=== PATIENT | female | born 1935 | race African-American/Black ===

== ENCOUNTER → 2017-04-08 | Outpatient (CLI) | payer MEDICARE, MEDICAID | END | disposition home or self-care (01) | LOC: CARD 09:20 | PROVIDERS: ATTEND Psychiatry & Neurology Neurology | DX: E23.0 Hypopituitarism (principal) ==

== ENCOUNTER 2017-08-17 14:05 | Inpatient (IN) | payer MEDICARE, MEDICAID ==
[~2017-08-17] VITALS: Ht 167.6 cm; Wt 102.2 kg
[2017-08-17] MEDS ORDERED: ONDANSETRON HCL 4MG/2ML VIAL IV STA (17:02)
[2017-08-17 17:59] LABS: INR 1.1; PROTHROMBIN TIME 11.3 sec (9.4-11.6)
[2017-08-17 18:02] LABS: BASOPHILS % 1.2 % (0.0-2.0); HEMATOCRIT. 33.5 % (36.0-48.0); HEMOGLOBIN. 11.2 g/dL (12.0-16.0); LYMPHOCYTES % 30.7 % (20.0-50.0); MEAN CORPUSCULAR HEMOGLOBIN 31.3 pg (28.0-32.0); MEAN CORPUSCULAR VOLUME 93.5 fL (81.0-99.0); MEAN PLATELET VOLUME 7.9 fl (7.4-10.4); MONOCYTES % 8.1 % (2.0-8.0); PLATELET 222 x1000/uL (130-400); RED BLOOD CELL COUNT 3.58 mill/uL (4.2-5.4); RED CELL DISTRIBUTION WIDTH 13.9 % (11.6-14.6)
[2017-08-17 18:03] LABS: AMMONIA < 25 uMol/L (<32)
[2017-08-17 18:12] LABS: CHLORIDE 109 mEq/L (98-107); ETHANOL BLOOD < 10 mg/dL
[2017-08-17 18:17] LABS: CREATINE KINASE 163 IU/L (26-192)
[2017-08-17] MEDS ORDERED: FUROSEMIDE 40MG/4ML VIAL IVP ONE (20:30)
[2017-08-17] MEDS ORDERED: ASPIRIN 325MG EC TABLET PO ONE (20:30)
[2017-08-17 22:59] LABS: CLARITY URINE CLOUDY (CLEAR); COLOR URINE YELLOW (YELLOW); KETONES URINE NEGATIVE (NEGATIVE); LEUKOCYTE ESTERASE URINE 3+ (NEGATIVE); NITRITE URINE POSITIVE (NEGATIVE); OCCULT BLOOD URINE TRACE (NEGATIVE); PH URINE 5.5 (4.5-8.0); PROTEIN URINE NEGATIVE (NEGATIVE); SPECIFIC GRAVITY URINE 1.013 (1.005-1.030); UROBILINOGEN URINE 0.2 E.U./dL (0.2-1.0)
[2017-08-17 23:10] LABS: *AMPHETAMINES SCREEN URINE NEGATIVE (NEGATIVE); *BARBITURATES SCREEN URINE NEGATIVE (NEGATIVE); *BENZODIAZEPINES SCREEN URINE NEGATIVE (NEGATIVE); *COCAINE SCREEN URINE NEGATIVE (NEGATIVE); METHADONE URINE SCREEN NEGATIVE (NEGATIVE)
[2017-08-17 23:11] LABS: CANNABINOID URINE SCREEN NEGATIVE (NEGATIVE); OPIATES URINE SCREEN NEGATIVE (NEGATIVE); PHENCYCLIDINE URINE SCREEN NEGATIVE (NEGATIVE)
[2017-08-17 23:35] VITALS: BP 163/60
[2017-08-17 23:50] VITALS: BP 163/60
[2017-08-18] MEDS ORDERED: CARB15DR3 EACHEYE (00:35)
[2017-08-18] MEDS ORDERED: TRAV2.5D RIGHTEYE (00:35)
[2017-08-18] MEDS ORDERED: [UNRECOGNIZED DRUG - REMARK] (00:35)
[2017-08-18] MEDS ORDERED: CARB15DR OP (00:35)
[2017-08-18] MEDS ORDERED: CYCL30DR OP (00:35)
[2017-08-18] MEDS ORDERED: CEFTRIAXONE 1,000 MG in DEXTROSE 5% WATER 50 ML IV SCH (01:15)
[2017-08-18] MEDS ORDERED: CEFTRIAXONE 1 G PREMIX 50 ML IV SCH (03:00)
[2017-08-18 04:00] VITALS: BP 149/53
[2017-08-18 08:00] VITALS: BP 137/57
[2017-08-18] MEDS ORDERED: MEDICATION NOT ON FORMULARY EA (Travoprost (Travatan Z) 1 DROP) RIGHTEYE SCH (09:00)
[2017-08-18] MEDS: CARVEDILOL 3.125 MG TABLET PO SCH ×2 (09:29→21:00)
[2017-08-18] MEDS: FUROSEMIDE 40MG TABLET PO SCH ×2 (09:29→21:00)
[2017-08-18] MEDS: LISINOPRIL 20MG TABLET PO SCH (09:30)
[2017-08-18] MEDS: ENOXAPARIN 30MG/0.3ML SYR SUBCUT SCH ×2 (09:30→21:00)
[2017-08-18] MEDS ORDERED: MORPHINE SULFATE 4 MG/ML CPJ (NOT FOR IM USE) IV PRN (09:30)
[2017-08-18] MEDS: LEVOFLOXACIN 500MG PREMIX 100 ML IV SCH (10:22)
[2017-08-18] MEDS: HYDROCODONE/ACETAMINOPHEN 5/325MG TABLET PO PRN ×2 (10:22→22:43)
[2017-08-18] MEDS ORDERED: IPRATROPIUM/ALBUTEROL 0.5-3(2.5)MG/3ML NEB HHN PRN (10:30)
[2017-08-18 12:00] VITALS: BP 108/55
[2017-08-18 16:00] VITALS: BP 127/60
[2017-08-18 20:00] VITALS: BP 137/60
[2017-08-18] MEDS: GUAIFENESIN 600MG ER TABLET PO SCH (21:00)
[2017-08-18] MEDS: LATANOPROST 0.005% OPHTH DROPS 2.5ML RIGHTEYE SCH (21:00)
[2017-08-19] VITALS: BP 111/59
[2017-08-19 04:00] VITALS: BP 119/63
[2017-08-19 07:45] VITALS: BP 132/60
[2017-08-19] MEDS: GUAIFENESIN 600MG ER TABLET PO SCH ×2 (09:33→20:57)
[2017-08-19] MEDS: FUROSEMIDE 40MG TABLET PO SCH (09:34)
[2017-08-19] MEDS: CARVEDILOL 3.125 MG TABLET PO SCH ×2 (09:36→20:57)
[2017-08-19] MEDS: LISINOPRIL 20MG TABLET PO SCH (09:36)
[2017-08-19] MEDS: ENOXAPARIN 30MG/0.3ML SYR SUBCUT SCH (09:41)
[2017-08-19 09:50] LABS: HEMATOCRIT 36.7 % (36.0-48.0); HEMOGLOBIN 12.3 g/dL (12.0-16.0); MEAN CORPUSCULAR HEMOGLOBIN 31.4 pg (28.0-32.0); MEAN CORPUSCULAR VOLUME 93.8 fL (81.0-99.0); PLATELET 229 x1000/uL (130-400); RED BLOOD CELL COUNT 3.91 mill/uL (4.2-5.4)
[2017-08-19 11:46] VITALS: BP 136/65
[2017-08-19] MEDS ORDERED: VANCOMYCIN 2,000 MG in DEXT 5% WATER 500 ML IV NR (14:00)
[2017-08-19 16:00] VITALS: BP 127/52
[2017-08-19 20:00] VITALS: BP 126/59
[2017-08-19] MEDS: LATANOPROST 0.005% OPHTH DROPS 2.5ML RIGHTEYE SCH (20:58)
[2017-08-19] MEDS: HYDROCODONE/ACETAMINOPHEN 5/325MG TABLET PO PRN (20:58)
[2017-08-20] VITALS: BP 121/60
[2017-08-20 04:00] VITALS: BP 129/64
[2017-08-20 07:14] LABS: BASOPHILS % 0.6 % (0.0-2.0); EOSINOPHILS % 2.7 % (0.0-5.0); HEMATOCRIT. 30.7 % (36.0-48.0); HEMOGLOBIN. 10.6 g/dL (12.0-16.0); LYMPHOCYTES % 36.5 % (20.0-50.0); MEAN CORPUSCULAR HEMOGLOBIN 31.9 pg (28.0-32.0); MONOCYTES % 12.8 % (2.0-8.0); NEUTROPHILS % 47.4 % (40.0-76.0); PLATELET 198 x1000/uL (130-400); RED CELL DISTRIBUTION WIDTH 13.7 % (11.6-14.6)
[2017-08-20 08:06] VITALS: BP 103/44
[2017-08-20] MEDS: LEVOFLOXACIN 500MG PREMIX 100 ML IV SCH (08:28)
[2017-08-20] MEDS: ASPIRIN 81MG TABLET PO SCH (08:29)
[2017-08-20] MEDS: ENOXAPARIN 40MG/0.4ML SYR SUBCUT SCH (08:29)
[2017-08-20] MEDS: CARVEDILOL 3.125 MG TABLET PO SCH ×2 (08:31→20:47)
[2017-08-20] MEDS: LISINOPRIL 20MG TABLET PO SCH (08:32)
[2017-08-20] MEDS ORDERED: FUROSEMIDE 40MG TABLET PO SCH (09:00)
[2017-08-20] MEDS: GUAIFENESIN 600MG ER TABLET PO SCH ×2 (10:43→20:42)
[2017-08-20] MEDS ORDERED: VANCOMYCIN 500 MG PREMIX 100 ML IV SCH (13:00)
[2017-08-20 20:00] VITALS: BP 120/76
[2017-08-20] MEDS: HYDROCODONE/ACETAMINOPHEN 5/325MG TABLET PO PRN (20:47)
[2017-08-20] MEDS: LATANOPROST 0.005% OPHTH DROPS 2.5ML RIGHTEYE SCH (20:52)
[2017-08-20] MEDS ORDERED: ATORVASTATIN CALCIUM 20MG TABLET PO SCH (21:00)
[2017-08-21] VITALS: BP 116/96
[2017-08-21 04:00] VITALS: BP 107/37
[2017-08-21 05:06] VITALS: BP 99/47
[2017-08-21 08:00] VITALS: BP 98/43
[2017-08-21] MEDS: CARVEDILOL 3.125 MG TABLET PO SCH (09:00)
[2017-08-21] MEDS: LISINOPRIL 20MG TABLET PO SCH (09:00)
[2017-08-21] MEDS: ASPIRIN 81MG TABLET PO SCH (09:37)
[2017-08-21] MEDS: ENOXAPARIN 40MG/0.4ML SYR SUBCUT SCH (09:37)
[2017-08-21] MEDS: GUAIFENESIN 600MG ER TABLET PO SCH (09:37)
== END 2017-08-21 12:40 | DRG 871 ==
LOC: ER 14:37 → 5WST 20:53 → EDBEDREQTM 20:55 → EDBEDREQ 20:55 → ENRESERV 22:31
PROVIDERS: ADMIT Internal Medicine; ATTEND Internal Medicine
DX: A41.9 Sepsis, unspecified organism (principal); G93.40 Encephalopathy, unspecified; I63.511 Cerebral infarction due to unspecified occlusion or stenosis of right middle cerebral artery; N17.9 Acute kidney failure, unspecified; I13.0 Hypertensive heart and chronic kidney disease with heart failure and stage 1 through stage 4 chronic kidney disease, or unspecified chronic kidney disease; N39.0 Urinary tract infection, site not specified; R44.3 Hallucinations, unspecified; I50.9 Heart failure, unspecified; I27.20 Pulmonary hypertension, unspecified; D64.9 Anemia, unspecified; E66.9 Obesity, unspecified; E78.5 Hyperlipidemia, unspecified; N18.9 Chronic kidney disease, unspecified; Z60.2 Problems related to living alone; B96.89 Other specified bacterial agents as the cause of diseases classified elsewhere; B96.20 Unspecified Escherichia coli [E. coli] as the cause of diseases classified elsewhere; B95.8 Unspecified staphylococcus as the cause of diseases classified elsewhere; G56.01 Carpal tunnel syndrome, right upper limb; H40.9 Unspecified glaucoma; H54.8 Legal blindness, as defined in USA; M10.9 Gout, unspecified; Z79.82 Long term (current) use of aspirin; Z82.49 Family history of ischemic heart disease and other diseases of the circulatory system; Z85.41 Personal history of malignant neoplasm of cervix uteri; Z88.0 Allergy status to penicillin; Z86.73 Personal history of transient ischemic attack (TIA), and cerebral infarction without residual deficits; Z98.84 Bariatric surgery status; Z90.710 Acquired absence of both cervix and uterus; Z79.899 Other long term (current) drug therapy; Z98.49 Cataract extraction status, unspecified eye; Z68.36 Body mass index [BMI] 36.0-36.9, adult
CPT/HCPCS: 36415; 70450; 70544; 70553; 71045; 80048; 80053; 80061; 80202; 80305; 81003; 82140; 82550; 82565; 82962; 83605; 83880; 84443; 84484; 85025; 85027; 85610; 87040; 87077; 87086; 87186; 92523; 92610; 93005; 93306; 93880; 96374; 97163; 97167; 97530; 99285; A6261; C1893; G0482; J0696; J1650; J1940; J1956; J3370; J7040; J7060; A4315

== ENCOUNTER 2017-08-21 12:50 | Inpatient (IN) | payer MEDICARE, MEDICAID ==
[~2017-08-21] VITALS: Ht 167.6 cm; Wt 99.8 kg
[2017-08-21 12:50] VITALS: BP 139/59
[~2017-08-21 12:50] MED LIST: CARB15DR3 EACHEYE; CYCL30DR OP; TRAV2.5D RIGHTEYE; [UNRECOGNIZED DRUG - REMARK]
[2017-08-21] MEDS ORDERED: IPRATROPIUM/ALBUTEROL 0.5-3(2.5)MG/3ML NEB HHN PRN (14:30)
[2017-08-21 16:23] LABS: BASOPHILS % 0.7 % (0.0-2.0); EOSINOPHILS % 4.2 % (0.0-5.0); HEMATOCRIT. 37.1 % (36.0-48.0); HEMOGLOBIN. 12.5 g/dL (12.0-16.0); LYMPHOCYTES % 32.5 % (20.0-50.0); MEAN CORPUSCULAR HEMOGLOBIN 31.3 pg (28.0-32.0); MEAN CORPUSCULAR VOLUME 93.2 fL (81.0-99.0); MEAN PLATELET VOLUME 7.7 fl (7.4-10.4); MONOCYTES % 11.3 % (2.0-8.0); NEUTROPHILS % 51.3 % (40.0-76.0); PLATELET 222 x1000/uL (130-400); RED BLOOD CELL COUNT 3.98 mill/uL (4.2-5.4); RED CELL DISTRIBUTION WIDTH 13.7 % (11.6-14.6)
[2017-08-21 16:31] LABS: CHLORIDE 104 mEq/L (98-107)
[2017-08-21] MEDS: CLOPIDOGREL 75MG TABLET PO SCH (16:35)
[2017-08-21] MEDS: [UNRECOGNIZED DRUG - OTHER] OP SCH (16:36)
[2017-08-21 16:37] LABS: PREALBUMIN 19.7 mg/dL (20.0-40.0)
[2017-08-21] MEDS: REFRESH LIQUIGEL OP SCH (16:50)
[2017-08-21] MEDS ORDERED: LEVOFLOXACIN 500MG TABLET PO NR (17:00)
[2017-08-21] MEDS: RESTASIS OP SCH (17:24)
[2017-08-21 20:00] VITALS: BP 130/64
[2017-08-21] MEDS ORDERED: LATANOPROST 0.005% OPHTH DROPS 2.5ML BOTHEYE SCH (21:00)
[2017-08-21] MEDS: GUAIFENESIN 600MG ER TABLET PO SCH (21:30)
[2017-08-21] MEDS: ATORVASTATIN CALCIUM 20MG TABLET PO SCH (21:30)
[2017-08-21] MEDS: CARVEDILOL 3.125 MG TABLET PO SCH (21:31)
[2017-08-21] MEDS: LATANOPROST 0.005% OPHTH DROPS 2.5ML RIGHTEYE SCH (21:32)
[2017-08-21] MEDS: HYDROCODONE/ACETAMINOPHEN 5/325MG TABLET PO PRN (23:36)
[2017-08-22] MEDS: [UNRECOGNIZED DRUG - OTHER] OP SCH ×2 (06:54→17:40)
[2017-08-22] MEDS: REFRESH LIQUIGEL OP SCH ×2 (06:54→17:39)
[2017-08-22] MEDS: RESTASIS OP SCH ×2 (06:54→17:53)
[2017-08-22 08:00] VITALS: BP 130/48
[2017-08-22] MEDS: CARVEDILOL 3.125 MG TABLET PO SCH ×2 (09:00→21:26)
[2017-08-22] MEDS: LISINOPRIL 20MG TABLET PO SCH (09:00)
[2017-08-22] MEDS: GUAIFENESIN 600MG ER TABLET PO SCH (09:39)
[2017-08-22] MEDS: CLOPIDOGREL 75MG TABLET PO SCH (09:39)
[2017-08-22] MEDS: ASPIRIN 81MG TABLET PO SCH (09:40)
[2017-08-22] MEDS: ENOXAPARIN 40MG/0.4ML SYR SUBCUT SCH (09:41)
[2017-08-22] MEDS ORDERED: LEVOFLOXACIN 500MG TABLET PO SCH (11:00)
[2017-08-22] MEDS ORDERED: LEVOFLOXACIN 250MG TABLET PO SCH (17:00)
[2017-08-22] MEDS: ACETAMINOPHEN 500MG TABLET PO SCH (17:39)
[2017-08-22] MEDS: LIDOCAINE HCL 4% CREAM 76GM TUBE TP SCH ×2 (18:00→21:28)
[2017-08-22 20:00] VITALS: BP 131/52
[2017-08-22] MEDS: LATANOPROST 0.005% OPHTH DROPS 2.5ML RIGHTEYE SCH (21:00)
[2017-08-22] MEDS: ATORVASTATIN CALCIUM 20MG TABLET PO SCH (21:26)
[2017-08-23] MEDS: RESTASIS OP SCH ×2 (06:02→17:31)
[2017-08-23] MEDS: [UNRECOGNIZED DRUG - OTHER] OP SCH ×2 (06:02→17:31)
[2017-08-23] MEDS: REFRESH LIQUIGEL OP SCH ×2 (06:02→17:32)
[2017-08-23 08:00] VITALS: BP 117/88
[2017-08-23] MEDS: CARVEDILOL 3.125 MG TABLET PO SCH ×2 (09:00→21:00)
[2017-08-23] MEDS: LISINOPRIL 20MG TABLET PO SCH (09:00)
[2017-08-23] MEDS: ASPIRIN 81MG TABLET PO SCH (09:55)
[2017-08-23] MEDS: CLOPIDOGREL 75MG TABLET PO SCH (09:57)
[2017-08-23] MEDS: ACETAMINOPHEN 500MG TABLET PO SCH ×3 (09:57→17:30)
[2017-08-23] MEDS: ENOXAPARIN 40MG/0.4ML SYR SUBCUT SCH (10:02)
[2017-08-23] MEDS: LIDOCAINE HCL 4% CREAM 76GM TUBE TP SCH ×4 (10:09→22:05)
[2017-08-23 20:00] VITALS: BP 115/87
[2017-08-23 20:01] LABS: CLARITY URINE CLEAR (CLEAR); COLOR URINE YELLOW (YELLOW); KETONES URINE NEGATIVE (NEGATIVE); LEUKOCYTE ESTERASE URINE 1+ (NEGATIVE); NITRITE URINE NEGATIVE (NEGATIVE); OCCULT BLOOD URINE NEGATIVE (NEGATIVE); PROTEIN URINE NEGATIVE (NEGATIVE); SPECIFIC GRAVITY URINE 1.017 (1.005-1.030); UROBILINOGEN URINE 0.2 E.U./dL (0.2-1.0)
[2017-08-23] MEDS: LATANOPROST 0.005% OPHTH DROPS 2.5ML RIGHTEYE SCH (21:00)
[2017-08-23] MEDS: ATORVASTATIN CALCIUM 20MG TABLET PO SCH (22:05)
[2017-08-24] MEDS: [UNRECOGNIZED DRUG - OTHER] OP SCH ×2 (04:56→17:13)
[2017-08-24] MEDS: RESTASIS OP SCH ×2 (05:12→17:14)
[2017-08-24] MEDS: REFRESH LIQUIGEL OP SCH ×2 (05:14→17:14)
[2017-08-24 06:47] LABS: BASOPHILS % 1.3 % (0.0-2.0); EOSINOPHILS % 5.6 % (0.0-5.0); HEMATOCRIT. 34.5 % (36.0-48.0); HEMOGLOBIN. 11.6 g/dL (12.0-16.0); LYMPHOCYTES % 38.4 % (20.0-50.0); MEAN CORPUSCULAR HEMOGLOBIN 31.3 pg (28.0-32.0); MEAN CORPUSCULAR VOLUME 93.2 fL (81.0-99.0); MEAN PLATELET VOLUME 7.8 fl (7.4-10.4); MONOCYTES % 11.8 % (2.0-8.0); NEUTROPHILS % 42.9 % (40.0-76.0); PLATELET 218 x1000/uL (130-400); RED CELL DISTRIBUTION WIDTH 13.4 % (11.6-14.6)
[2017-08-24 08:00] VITALS: BP 124/35
[2017-08-24 08:29] LABS: PHOSPHORUS 3.8 mg/dL (2.5-4.9)
[2017-08-24 08:49] LABS: FOLIC ACID (FOLATE) SERUM 8.3 ng/mL (>5.38)
[2017-08-24] MEDS: CARVEDILOL 3.125 MG TABLET PO SCH ×2 (09:00→21:00)
[2017-08-24] MEDS: ENOXAPARIN 40MG/0.4ML SYR SUBCUT SCH (09:24)
[2017-08-24] MEDS: CLOPIDOGREL 75MG TABLET PO SCH (09:25)
[2017-08-24] MEDS: ASPIRIN 81MG TABLET PO SCH (09:25)
[2017-08-24] MEDS: ACETAMINOPHEN 500MG TABLET PO SCH ×3 (09:25→17:15)
[2017-08-24] MEDS: LIDOCAINE HCL 4% CREAM 76GM TUBE TP SCH ×4 (09:29→20:31)
[2017-08-24] MEDS: LISINOPRIL 20MG TABLET PO SCH (09:34)
[2017-08-24] MEDS: OXYCODONE HCL 5MG TABLET PO SCH ×2 (12:29→17:17)
[2017-08-24] MEDS: MUPIROCIN 2% OINT 22GM NS SCH ×2 (12:30→20:31)
[2017-08-24 20:00] VITALS: BP 136/51
[2017-08-24] MEDS: ATORVASTATIN CALCIUM 20MG TABLET PO SCH (20:31)
[2017-08-24] MEDS: HYDROCODONE/ACETAMINOPHEN 5/325MG TABLET PO PRN (20:32)
[2017-08-24] MEDS: LATANOPROST 0.005% OPHTH DROPS 2.5ML RIGHTEYE SCH (21:17)
[2017-08-25] MEDS: [UNRECOGNIZED DRUG - OTHER] OP SCH ×2 (04:16→16:25)
[2017-08-25] MEDS: REFRESH LIQUIGEL OP SCH ×3 (04:35→16:32)
[2017-08-25] MEDS: RESTASIS OP SCH ×2 (04:35→16:29)
[2017-08-25] MEDS: HYDROCODONE/ACETAMINOPHEN 5/325MG TABLET PO PRN (06:37)
[2017-08-25 08:00] VITALS: BP 119/41
[2017-08-25] MEDS: LISINOPRIL 20MG TABLET PO SCH (09:00)
[2017-08-25] MEDS: CARVEDILOL 3.125 MG TABLET PO SCH ×2 (09:00→21:00)
[2017-08-25] MEDS: MUPIROCIN 2% OINT 22GM NS SCH ×2 (09:36→21:17)
[2017-08-25] MEDS: ASPIRIN 81MG TABLET PO SCH (09:39)
[2017-08-25] MEDS: CLOPIDOGREL 75MG TABLET PO SCH (09:40)
[2017-08-25] MEDS: ACETAMINOPHEN 500MG TABLET PO SCH ×3 (09:40→16:22)
[2017-08-25] MEDS: OXYCODONE HCL 5MG TABLET PO SCH ×3 (09:42→21:28)
[2017-08-25] MEDS: ENOXAPARIN 40MG/0.4ML SYR SUBCUT SCH (09:43)
[2017-08-25] MEDS: LIDOCAINE HCL 4% CREAM 76GM TUBE TP SCH ×4 (09:46→21:16)
[2017-08-25] MEDS ORDERED: LACTULOSE 20G/30ML UDC PO NR (12:45)
[2017-08-25] MEDS: DOCUSATE SODIUM 100MG CAPSULE PO SCH (16:22)
[2017-08-25 20:00] VITALS: BP 126/36
[2017-08-25] MEDS: POLYETHYLENE GLYCOL 3350 (17GM) 1 DOSE PACK PO SCH (21:00)
[2017-08-25] MEDS: LATANOPROST 0.005% OPHTH DROPS 2.5ML RIGHTEYE SCH (21:26)
[2017-08-25] MEDS: ATORVASTATIN CALCIUM 20MG TABLET PO SCH (21:27)
[2017-08-26] MEDS: [UNRECOGNIZED DRUG - OTHER] OP SCH ×2 (05:00→17:24)
[2017-08-26] MEDS: OXYCODONE HCL 5MG TABLET PO SCH (06:05)
[2017-08-26] MEDS: RESTASIS OP SCH ×2 (06:07→17:30)
[2017-08-26 07:21] LABS: BASOPHILS % 1.3 % (0.0-2.0); EOSINOPHILS % 5.1 % (0.0-5.0); HEMATOCRIT. 36.2 % (36.0-48.0); HEMOGLOBIN. 12.4 g/dL (12.0-16.0); LYMPHOCYTES % 42.6 % (20.0-50.0); MEAN CORPUSCULAR HEMOGLOBIN 32.2 pg (28.0-32.0); MEAN CORPUSCULAR VOLUME 93.9 fL (81.0-99.0); MEAN PLATELET VOLUME 8.3 fl (7.4-10.4); MONOCYTES % 12.8 % (2.0-8.0); NEUTROPHILS % 38.2 % (40.0-76.0); PLATELET 213 x1000/uL (130-400); RED BLOOD CELL COUNT 3.86 mill/uL (4.2-5.4); RED CELL DISTRIBUTION WIDTH 13.4 % (11.6-14.6)
[2017-08-26 07:36] LABS: CHLORIDE 106 mEq/L (98-107)
[2017-08-26 08:00] VITALS: BP 151/52
[2017-08-26 08:03] LABS: PHOSPHORUS 3.4 mg/dL (2.5-4.9)
[2017-08-26] MEDS: ASPIRIN 81MG TABLET PO SCH (08:51)
[2017-08-26] MEDS: MUPIROCIN 2% OINT 22GM NS SCH ×2 (08:51→21:37)
[2017-08-26] MEDS: DOCUSATE SODIUM 100MG CAPSULE PO SCH ×2 (08:51→17:24)
[2017-08-26] MEDS: CLOPIDOGREL 75MG TABLET PO SCH (08:51)
[2017-08-26] MEDS: ACETAMINOPHEN 500MG TABLET PO SCH ×3 (08:51→17:24)
[2017-08-26] MEDS: CARVEDILOL 3.125 MG TABLET PO SCH ×2 (08:52→21:00)
[2017-08-26] MEDS: ENOXAPARIN 40MG/0.4ML SYR SUBCUT SCH (08:52)
[2017-08-26] MEDS: LISINOPRIL 20MG TABLET PO SCH (08:52)
[2017-08-26] MEDS: LIDOCAINE HCL 4% CREAM 76GM TUBE TP SCH ×4 (08:53→21:37)
[2017-08-26] MEDS: ZINC SULFATE 220 MG ( 50 ) CAPSULE PO SCH (15:33)
[2017-08-26] MEDS: REFRESH LIQUIGEL OP SCH ×2 (15:33→20:00)
[2017-08-26] MEDS: FOLIC ACID/VITAMIN B COMP W-C TABLET PO SCH (15:33)
[2017-08-26 20:00] VITALS: BP 129/51
[2017-08-26] MEDS: POLYETHYLENE GLYCOL 3350 (17GM) 1 DOSE PACK PO SCH (21:37)
[2017-08-26] MEDS: ATORVASTATIN CALCIUM 20MG TABLET PO SCH (21:37)
[2017-08-26] MEDS: ASCORBIC ACID 250 MG TABLET PO SCH (21:37)
[2017-08-26] MEDS: LATANOPROST 0.005% OPHTH DROPS 2.5ML RIGHTEYE SCH (21:37)
[2017-08-27] MEDS: [UNRECOGNIZED DRUG - OTHER] OP SCH ×2 (05:53→17:50)
[2017-08-27] MEDS: RESTASIS OP SCH ×2 (05:53→17:50)
[2017-08-27 08:00] VITALS: BP 115/41
[2017-08-27] MEDS: LIDOCAINE HCL 4% CREAM 76GM TUBE TP SCH ×4 (08:39→21:49)
[2017-08-27] MEDS: MUPIROCIN 2% OINT 22GM NS SCH ×2 (08:39→21:59)
[2017-08-27] MEDS: REFRESH LIQUIGEL OP SCH ×3 (08:40→20:17)
[2017-08-27] MEDS: CLOPIDOGREL 75MG TABLET PO SCH (08:40)
[2017-08-27] MEDS: ASCORBIC ACID 250 MG TABLET PO SCH ×2 (08:41→21:49)
[2017-08-27] MEDS: ZINC SULFATE 220 MG ( 50 ) CAPSULE PO SCH (08:41)
[2017-08-27] MEDS: FOLIC ACID/VITAMIN B COMP W-C TABLET PO SCH (08:41)
[2017-08-27] MEDS: ASPIRIN 81MG TABLET PO SCH (08:41)
[2017-08-27] MEDS: DOCUSATE SODIUM 100MG CAPSULE PO SCH ×2 (08:42→17:49)
[2017-08-27] MEDS: ACETAMINOPHEN 500MG TABLET PO SCH ×3 (08:43→17:49)
[2017-08-27] MEDS: ENOXAPARIN 40MG/0.4ML SYR SUBCUT SCH (08:44)
[2017-08-27] MEDS: LISINOPRIL 20MG TABLET PO SCH (09:00)
[2017-08-27] MEDS: CARVEDILOL 3.125 MG TABLET PO SCH ×2 (09:00→21:00)
[2017-08-27] MEDS: LACTULOSE 20G/30ML UDC PO SCH ×3 (15:03→22:00)
[2017-08-27] MEDS ORDERED: RESTASIS OP PRN (17:00)
[2017-08-27 20:00] VITALS: BP 126/43
[2017-08-27] MEDS: POLYETHYLENE GLYCOL 3350 (17GM) 1 DOSE PACK PO SCH (21:00)
[2017-08-27] MEDS: ATORVASTATIN CALCIUM 20MG TABLET PO SCH (21:49)
[2017-08-27] MEDS: LATANOPROST 0.005% OPHTH DROPS 2.5ML RIGHTEYE SCH (21:50)
[2017-08-28] MEDS: [UNRECOGNIZED DRUG - OTHER] OP SCH ×3 (05:39→17:40)
[2017-08-28 08:00] VITALS: BP 108/32
[2017-08-28] MEDS: MUPIROCIN 2% OINT 22GM NS SCH ×2 (08:09→20:50)
[2017-08-28] MEDS: ASPIRIN 81MG TABLET PO SCH (08:10)
[2017-08-28] MEDS: REFRESH LIQUIGEL OP SCH ×3 (08:10→19:43)
[2017-08-28] MEDS: RESTASIS OP SCH ×2 (08:10→17:38)
[2017-08-28] MEDS: DOCUSATE SODIUM 100MG CAPSULE PO SCH ×2 (08:10→17:39)
[2017-08-28] MEDS: ENOXAPARIN 40MG/0.4ML SYR SUBCUT SCH (08:12)
[2017-08-28] MEDS: LISINOPRIL 20MG TABLET PO SCH (08:13)
[2017-08-28] MEDS: ASCORBIC ACID 250 MG TABLET PO SCH ×2 (08:13→20:53)
[2017-08-28] MEDS: LIDOCAINE HCL 4% CREAM 76GM TUBE TP SCH ×5 (08:13→20:56)
[2017-08-28] MEDS: FOLIC ACID/VITAMIN B COMP W-C TABLET PO SCH (08:16)
[2017-08-28] MEDS: ZINC SULFATE 220 MG ( 50 ) CAPSULE PO SCH (08:16)
[2017-08-28] MEDS: ACETAMINOPHEN 500MG TABLET PO SCH ×3 (08:16→17:39)
[2017-08-28] MEDS: CLOPIDOGREL 75MG TABLET PO SCH (08:16)
[2017-08-28] MEDS: CARVEDILOL 3.125 MG TABLET PO SCH ×2 (08:17→20:51)
[2017-08-28 13:06] LABS: 25-HYDROXY VITAMIN D3 8.1 ng/mL (.)
[2017-08-28 20:00] VITALS: BP 120/49
[2017-08-28] MEDS: ATORVASTATIN CALCIUM 20MG TABLET PO SCH (20:51)
[2017-08-28] MEDS: GABAPENTIN 100MG CAPSULE PO SCH (20:53)
[2017-08-28] MEDS: POLYETHYLENE GLYCOL 3350 (17GM) 1 DOSE PACK PO SCH ×2 (20:53→21:00)
[2017-08-28] MEDS: LATANOPROST 0.005% OPHTH DROPS 2.5ML RIGHTEYE SCH (21:07)
[2017-08-29] MEDS: [UNRECOGNIZED DRUG - OTHER] OP SCH ×2 (04:47→18:59)
[2017-08-29 08:00] VITALS: BP 122/48
[2017-08-29] MEDS: CARVEDILOL 3.125 MG TABLET PO SCH ×2 (09:00→21:00)
[2017-08-29] MEDS: LISINOPRIL 20MG TABLET PO SCH (09:00)
[2017-08-29] MEDS: REFRESH LIQUIGEL OP SCH ×3 (09:08→20:35)
[2017-08-29] MEDS: DOCUSATE SODIUM 100MG CAPSULE PO SCH ×2 (09:08→18:51)
[2017-08-29] MEDS: RESTASIS OP SCH ×2 (09:08→18:58)
[2017-08-29] MEDS: ZINC SULFATE 220 MG ( 50 ) CAPSULE PO SCH (09:09)
[2017-08-29] MEDS: FOLIC ACID/VITAMIN B COMP W-C TABLET PO SCH (09:09)
[2017-08-29] MEDS: CLOPIDOGREL 75MG TABLET PO SCH (09:09)
[2017-08-29] MEDS: ASCORBIC ACID 250 MG TABLET PO SCH ×2 (09:09→21:26)
[2017-08-29] MEDS: ACETAMINOPHEN 500MG TABLET PO SCH ×3 (09:11→18:52)
[2017-08-29] MEDS: ENOXAPARIN 40MG/0.4ML SYR SUBCUT SCH (09:12)
[2017-08-29] MEDS: ASPIRIN 81MG TABLET PO SCH (09:13)
[2017-08-29] MEDS: LIDOCAINE HCL 4% CREAM 76GM TUBE TP SCH ×5 (09:13→21:27)
[2017-08-29] MEDS: POLYETHYLENE GLYCOL 3350 (17GM) 1 DOSE PACK PO SCH (18:50)
[2017-08-29] MEDS: ERGOCALCIFEROL 50000UNITS CAPSULE PO SCH (18:51)
[2017-08-29 20:00] VITALS: BP 97/51
[2017-08-29] MEDS: ATORVASTATIN CALCIUM 20MG TABLET PO SCH (21:26)
[2017-08-29] MEDS: GABAPENTIN 100MG CAPSULE PO SCH (21:26)
[2017-08-29] MEDS: ACYCLOVIR 400 MG TABLET PO SCH (21:27)
[2017-08-29] MEDS: LATANOPROST 0.005% OPHTH DROPS 2.5ML RIGHTEYE SCH (21:29)
[2017-08-29 23:00] VITALS: BP 139/52
[2017-08-30] MEDS: ACYCLOVIR 400 MG TABLET PO SCH ×3 (05:12→21:11)
[2017-08-30] MEDS: [UNRECOGNIZED DRUG - OTHER] OP SCH ×2 (05:12→16:49)
[2017-08-30 06:59] LABS: EOSINOPHILS % 4.6 % (0.0-5.0); HEMATOCRIT. 36.9 % (36.0-48.0); HEMOGLOBIN. 12.3 g/dL (12.0-16.0); LYMPHOCYTES % 46.2 % (20.0-50.0); MEAN CORPUSCULAR HEMOGLOBIN 31.6 pg (28.0-32.0); MEAN CORPUSCULAR VOLUME 94.8 fL (81.0-99.0); MEAN PLATELET VOLUME 8.3 fl (7.4-10.4); MONOCYTES % 11.3 % (2.0-8.0); NEUTROPHILS % 35.9 % (40.0-76.0); PLATELET 222 x1000/uL (130-400); RED BLOOD CELL COUNT 3.89 mill/uL (4.2-5.4); RED CELL DISTRIBUTION WIDTH 13.4 % (11.6-14.6)
[2017-08-30 07:33] LABS: CHLORIDE 109 mEq/L (98-107)
[2017-08-30 07:50] LABS: PHOSPHORUS 3.7 mg/dL (2.5-4.9)
[2017-08-30 08:32] VITALS: BP 125/48
[2017-08-30] MEDS: RESTASIS OP SCH ×2 (08:36→16:47)
[2017-08-30] MEDS: DOCUSATE SODIUM 100MG CAPSULE PO SCH ×2 (08:37→16:46)
[2017-08-30] MEDS: FOLIC ACID/VITAMIN B COMP W-C TABLET PO SCH (08:37)
[2017-08-30] MEDS: ASPIRIN 81MG TABLET PO SCH (08:37)
[2017-08-30] MEDS: ASCORBIC ACID 250 MG TABLET PO SCH ×2 (08:37→21:11)
[2017-08-30] MEDS: ZINC SULFATE 220 MG ( 50 ) CAPSULE PO SCH (08:37)
[2017-08-30] MEDS: REFRESH LIQUIGEL OP SCH ×3 (08:37→21:13)
[2017-08-30] MEDS: LISINOPRIL 20MG TABLET PO SCH (08:38)
[2017-08-30] MEDS: CLOPIDOGREL 75MG TABLET PO SCH (08:38)
[2017-08-30] MEDS: ACETAMINOPHEN 500MG TABLET PO SCH ×3 (08:38→16:46)
[2017-08-30] MEDS: ENOXAPARIN 40MG/0.4ML SYR SUBCUT SCH (08:39)
[2017-08-30] MEDS: CARVEDILOL 3.125 MG TABLET PO SCH ×2 (08:42→21:00)
[2017-08-30] MEDS: LIDOCAINE HCL 4% CREAM 76GM TUBE TP SCH ×4 (08:43→21:00)
[2017-08-30 20:00] VITALS: BP 127/49
[2017-08-30] MEDS ORDERED: ZOLPIDEM TARTRATE 5MG TABLET PO PRN (20:00)
[2017-08-30] MEDS: ATORVASTATIN CALCIUM 20MG TABLET PO SCH (21:11)
[2017-08-30] MEDS: GABAPENTIN 100MG CAPSULE PO SCH (21:11)
[2017-08-30] MEDS: POLYETHYLENE GLYCOL 3350 (17GM) 1 DOSE PACK PO SCH (21:15)
[2017-08-30] MEDS: LATANOPROST 0.005% OPHTH DROPS 2.5ML RIGHTEYE SCH (21:15)
[2017-08-31] MEDS: [UNRECOGNIZED DRUG - OTHER] OP SCH ×2 (04:49→16:11)
[2017-08-31] MEDS: ACYCLOVIR 400 MG TABLET PO SCH ×3 (05:41→21:17)
[2017-08-31 08:32] VITALS: BP 125/34
[2017-08-31] MEDS: RESTASIS OP SCH ×2 (08:49→16:11)
[2017-08-31] MEDS: REFRESH LIQUIGEL OP SCH ×3 (08:50→21:17)
[2017-08-31] MEDS: ZINC SULFATE 220 MG ( 50 ) CAPSULE PO SCH (08:56)
[2017-08-31] MEDS: ASCORBIC ACID 250 MG TABLET PO SCH ×2 (08:56→21:16)
[2017-08-31] MEDS: ASPIRIN 81MG TABLET PO SCH (08:56)
[2017-08-31] MEDS: CLOPIDOGREL 75MG TABLET PO SCH (08:56)
[2017-08-31] MEDS: ENOXAPARIN 40MG/0.4ML SYR SUBCUT SCH (08:56)
[2017-08-31] MEDS: DOCUSATE SODIUM 100MG CAPSULE PO SCH ×2 (08:56→16:11)
[2017-08-31] MEDS: FOLIC ACID/VITAMIN B COMP W-C TABLET PO SCH (08:57)
[2017-08-31] MEDS: ACETAMINOPHEN 500MG TABLET PO SCH ×3 (08:57→16:11)
[2017-08-31] MEDS: CARVEDILOL 3.125 MG TABLET PO SCH ×2 (08:58→21:00)
[2017-08-31] MEDS: LISINOPRIL 20MG TABLET PO SCH (09:00)
[2017-08-31] MEDS: LIDOCAINE HCL 4% CREAM 76GM TUBE TP SCH ×4 (09:00→21:00)
[2017-08-31] MEDS: THROAT LOZENGES-BENZOCAINE/MENTH/CETYLPYRD CL LOZENGES MM PRN (11:11)
[2017-08-31 20:00] VITALS: BP 125/43
[2017-08-31] MEDS: POLYETHYLENE GLYCOL 3350 (17GM) 1 DOSE PACK PO SCH (21:00)
[2017-08-31] MEDS: ATORVASTATIN CALCIUM 20MG TABLET PO SCH (21:16)
[2017-08-31 21:17] VITALS: BP 127/53
[2017-08-31] MEDS: GABAPENTIN 100MG CAPSULE PO SCH (21:17)
[2017-08-31] MEDS: LATANOPROST 0.005% OPHTH DROPS 2.5ML RIGHTEYE SCH (21:25)
[2017-09-01] MEDS: THROAT LOZENGES-BENZOCAINE/MENTH/CETYLPYRD CL LOZENGES MM PRN (00:22)
[2017-09-01] MEDS: [UNRECOGNIZED DRUG - OTHER] OP SCH ×2 (05:32→17:57)
[2017-09-01] MEDS: ACYCLOVIR 400 MG TABLET PO SCH ×3 (05:32→22:04)
[2017-09-01 07:03] LABS: BASOPHILS % 1.5 % (0.0-2.0); EOSINOPHILS % 3.6 % (0.0-5.0); HEMATOCRIT. 33.8 % (36.0-48.0); HEMOGLOBIN. 11.4 g/dL (12.0-16.0); LYMPHOCYTES % 42.2 % (20.0-50.0); MEAN CORPUSCULAR HEMOGLOBIN 31.5 pg (28.0-32.0); MEAN CORPUSCULAR VOLUME 93.8 fL (81.0-99.0); MEAN PLATELET VOLUME 8.3 fl (7.4-10.4); MONOCYTES % 10.3 % (2.0-8.0); NEUTROPHILS % 42.4 % (40.0-76.0); PLATELET 239 x1000/uL (130-400); RED BLOOD CELL COUNT 3.61 mill/uL (4.2-5.4); RED CELL DISTRIBUTION WIDTH 13.6 % (11.6-14.6)
[2017-09-01 08:00] VITALS: BP 117/49
[2017-09-01] MEDS: ASPIRIN 81MG TABLET PO SCH (08:39)
[2017-09-01] MEDS: FOLIC ACID/VITAMIN B COMP W-C TABLET PO SCH (08:39)
[2017-09-01] MEDS: DOCUSATE SODIUM 100MG CAPSULE PO SCH ×2 (08:39→17:56)
[2017-09-01] MEDS: ZINC SULFATE 220 MG ( 50 ) CAPSULE PO SCH (08:39)
[2017-09-01] MEDS: CLOPIDOGREL 75MG TABLET PO SCH (08:39)
[2017-09-01] MEDS: ASCORBIC ACID 250 MG TABLET PO SCH ×2 (08:39→22:03)
[2017-09-01] MEDS: ACETAMINOPHEN 500MG TABLET PO SCH ×3 (08:40→17:56)
[2017-09-01] MEDS: ENOXAPARIN 40MG/0.4ML SYR SUBCUT SCH (08:41)
[2017-09-01] MEDS: LIDOCAINE HCL 4% CREAM 76GM TUBE TP SCH ×6 (08:42→21:00)
[2017-09-01] MEDS: REFRESH LIQUIGEL OP SCH ×3 (08:43→17:56)
[2017-09-01] MEDS: RESTASIS OP SCH ×2 (08:44→17:57)
[2017-09-01] MEDS: CARVEDILOL 3.125 MG TABLET PO SCH (08:48)
[2017-09-01 10:00] LABS: CREATINE KINASE 53 IU/L (26-192)
[2017-09-01 20:00] VITALS: BP 122/50
[2017-09-01] MEDS: POLYETHYLENE GLYCOL 3350 (17GM) 1 DOSE PACK PO SCH (21:00)
[2017-09-01] MEDS: ATORVASTATIN CALCIUM 20MG TABLET PO SCH (22:02)
[2017-09-01] MEDS: GABAPENTIN 100MG CAPSULE PO SCH (22:03)
[2017-09-01] MEDS: LATANOPROST 0.005% OPHTH DROPS 2.5ML RIGHTEYE SCH (22:05)
[2017-09-02] MEDS: ACYCLOVIR 400 MG TABLET PO SCH ×3 (05:42→21:07)
[2017-09-02] MEDS: [UNRECOGNIZED DRUG - OTHER] OP SCH ×3 (05:42→17:35)
[2017-09-02] MEDS: THROAT LOZENGES-BENZOCAINE/MENTH/CETYLPYRD CL LOZENGES MM PRN (05:43)
[2017-09-02 06:35] LABS: BASOPHILS % 1.4 % (0.0-2.0); EOSINOPHILS % 3.4 % (0.0-5.0); HEMATOCRIT. 36.1 % (36.0-48.0); HEMOGLOBIN. 12.1 g/dL (12.0-16.0); MEAN CORPUSCULAR HEMOGLOBIN 31.5 pg (28.0-32.0); MEAN CORPUSCULAR VOLUME 93.9 fL (81.0-99.0); MEAN PLATELET VOLUME 8.1 fl (7.4-10.4); MONOCYTES % 9.7 % (2.0-8.0); NEUTROPHILS % 45.5 % (40.0-76.0); PLATELET 240 x1000/uL (130-400); RED BLOOD CELL COUNT 3.84 mill/uL (4.2-5.4); RED CELL DISTRIBUTION WIDTH 13.2 % (11.6-14.6)
[2017-09-02 07:17] LABS: PHOSPHORUS 3.6 mg/dL (2.5-4.9)
[2017-09-02 08:00] VITALS: BP 118/39
[2017-09-02] MEDS: LIDOCAINE HCL 4% CREAM 76GM TUBE TP SCH ×4 (09:00→21:00)
[2017-09-02] MEDS: ZINC SULFATE 220 MG ( 50 ) CAPSULE PO SCH (09:09)
[2017-09-02] MEDS: ACETAMINOPHEN 500MG TABLET PO SCH (09:09)
[2017-09-02] MEDS: CLOPIDOGREL 75MG TABLET PO SCH (09:09)
[2017-09-02] MEDS: ASPIRIN 81MG TABLET PO SCH (09:09)
[2017-09-02] MEDS: DOCUSATE SODIUM 100MG CAPSULE PO SCH ×2 (09:09→17:31)
[2017-09-02] MEDS: FOLIC ACID/VITAMIN B COMP W-C TABLET PO SCH (09:09)
[2017-09-02] MEDS: REFRESH LIQUIGEL OP SCH ×3 (09:18→20:01)
[2017-09-02] MEDS: RESTASIS OP SCH ×2 (09:22→17:35)
[2017-09-02] MEDS: ENOXAPARIN 40MG/0.4ML SYR SUBCUT SCH (09:24)
[2017-09-02] MEDS: ASCORBIC ACID 250 MG TABLET PO SCH ×2 (11:07→21:07)
[2017-09-02] MEDS ORDERED: ACETAMINOPHEN 500MG TABLET PO PRN (14:30)
[2017-09-02 20:00] VITALS: BP 122/59
[2017-09-02] MEDS: GABAPENTIN 100MG CAPSULE PO SCH (21:07)
[2017-09-02] MEDS: ATORVASTATIN CALCIUM 20MG TABLET PO SCH (21:07)
[2017-09-02] MEDS: LATANOPROST 0.005% OPHTH DROPS 2.5ML RIGHTEYE SCH (21:07)
[2017-09-02] MEDS: POLYETHYLENE GLYCOL 3350 (17GM) 1 DOSE PACK PO SCH (21:08)
[2017-09-03] MEDS: ACYCLOVIR 400 MG TABLET PO SCH ×3 (05:15→21:18)
[2017-09-03 08:00] VITALS: BP 125/37
[2017-09-03] MEDS: LIDOCAINE HCL 4% CREAM 76GM TUBE TP SCH ×4 (09:00→21:00)
[2017-09-03] MEDS: FOLIC ACID/VITAMIN B COMP W-C TABLET PO SCH (09:40)
[2017-09-03] MEDS: REFRESH LIQUIGEL OP SCH ×3 (09:40→20:20)
[2017-09-03] MEDS: RESTASIS OP SCH ×2 (09:40→17:09)
[2017-09-03] MEDS: ASPIRIN 81MG TABLET PO SCH (09:40)
[2017-09-03] MEDS: ASCORBIC ACID 250 MG TABLET PO SCH ×2 (09:40→21:18)
[2017-09-03] MEDS: DOCUSATE SODIUM 100MG CAPSULE PO SCH ×2 (09:40→17:09)
[2017-09-03] MEDS: ZINC SULFATE 220 MG ( 50 ) CAPSULE PO SCH (09:40)
[2017-09-03] MEDS: CLOPIDOGREL 75MG TABLET PO SCH (09:40)
[2017-09-03] MEDS: ENOXAPARIN 40MG/0.4ML SYR SUBCUT SCH (09:41)
[2017-09-03 11:10] LABS: CHLORIDE 109 mEq/L (98-107)
[2017-09-03] MEDS ORDERED: SODIUM POLYSTYRENE SULFONATE 15 G/60 ML BOT PO NR (13:30)
[2017-09-03] MEDS ORDERED: SODIUM POLYSTYRENE SULFONATE 15 G/60 ML BOT PO SCH (13:30)
[2017-09-03] MEDS: [UNRECOGNIZED DRUG - OTHER] OP SCH (17:09)
[2017-09-03 19:07] LABS: ANTI-NUCLEAR ANTIBODIES DIRECT Negative (Negative)
[2017-09-03 20:20] VITALS: BP 136/42
[2017-09-03] MEDS: POLYETHYLENE GLYCOL 3350 (17GM) 1 DOSE PACK PO SCH (21:00)
[2017-09-03] MEDS: LATANOPROST 0.005% OPHTH DROPS 2.5ML RIGHTEYE SCH (21:18)
[2017-09-03] MEDS: ATORVASTATIN CALCIUM 20MG TABLET PO SCH (21:18)
[2017-09-03] MEDS: GABAPENTIN 100MG CAPSULE PO SCH (21:18)
[2017-09-04] MEDS: [UNRECOGNIZED DRUG - OTHER] OP SCH ×2 (05:00→17:00)
[2017-09-04] MEDS: ACYCLOVIR 400 MG TABLET PO SCH ×3 (05:17→21:31)
[2017-09-04 07:26] LABS: BASOPHILS % 1.2 % (0.0-2.0); EOSINOPHILS % 3.5 % (0.0-5.0); HEMATOCRIT. 32.8 % (36.0-48.0); HEMOGLOBIN. 11.4 g/dL (12.0-16.0); LYMPHOCYTES % 39.2 % (20.0-50.0); MEAN CORPUSCULAR HEMOGLOBIN 32.3 pg (28.0-32.0); MEAN CORPUSCULAR VOLUME 92.9 fL (81.0-99.0); MEAN PLATELET VOLUME 8.4 fl (7.4-10.4); MONOCYTES % 10.1 % (2.0-8.0); PLATELET 233 x1000/uL (130-400); RED BLOOD CELL COUNT 3.53 mill/uL (4.2-5.4); RED CELL DISTRIBUTION WIDTH 13.4 % (11.6-14.6)
[2017-09-04] MEDS ORDERED: ZOLPIDEM TARTRATE 5MG TABLET PO PRN (08:00)
[2017-09-04 08:05] LABS: CHLORIDE 111 mEq/L (98-107)
[2017-09-04 08:23] VITALS: BP 125/54
[2017-09-04] MEDS: RESTASIS OP SCH ×2 (08:53→17:33)
[2017-09-04] MEDS: REFRESH LIQUIGEL OP SCH ×3 (08:53→17:33)
[2017-09-04] MEDS: FOLIC ACID/VITAMIN B COMP W-C TABLET PO SCH (08:54)
[2017-09-04] MEDS: DOCUSATE SODIUM 100MG CAPSULE PO SCH ×2 (08:54→17:00)
[2017-09-04] MEDS: ASPIRIN 81MG TABLET PO SCH (08:54)
[2017-09-04] MEDS: ZINC SULFATE 220 MG ( 50 ) CAPSULE PO SCH (08:54)
[2017-09-04] MEDS: ASCORBIC ACID 250 MG TABLET PO SCH ×2 (08:55→21:31)
[2017-09-04] MEDS: ENOXAPARIN 40MG/0.4ML SYR SUBCUT SCH (08:55)
[2017-09-04] MEDS: CLOPIDOGREL 75MG TABLET PO SCH (08:55)
[2017-09-04] MEDS: LIDOCAINE HCL 4% CREAM 76GM TUBE TP SCH ×4 (08:56→21:00)
[2017-09-04 10:09] LABS: COMPLEMENT C3 154 mg/dL (82-167)
[2017-09-04 20:00] VITALS: BP 134/54
[2017-09-04] MEDS: POLYETHYLENE GLYCOL 3350 (17GM) 1 DOSE PACK PO SCH (21:00)
[2017-09-04] MEDS: GABAPENTIN 100MG CAPSULE PO SCH (21:31)
[2017-09-04] MEDS: ATORVASTATIN CALCIUM 20MG TABLET PO SCH (21:31)
[2017-09-04] MEDS: LATANOPROST 0.005% OPHTH DROPS 2.5ML RIGHTEYE SCH (21:32)
[2017-09-05] MEDS: ACYCLOVIR 400 MG TABLET PO SCH ×3 (06:24→21:06)
[2017-09-05] MEDS: [UNRECOGNIZED DRUG - OTHER] OP SCH ×2 (06:31→17:00)
[2017-09-05 08:00] VITALS: BP 124/60
[2017-09-05] MEDS: LIDOCAINE HCL 4% CREAM 76GM TUBE TP SCH ×4 (09:00→21:00)
[2017-09-05] MEDS: DOCUSATE SODIUM 100MG CAPSULE PO SCH ×2 (09:00→17:00)
[2017-09-05] MEDS: RESTASIS OP SCH ×2 (09:51→19:22)
[2017-09-05] MEDS: REFRESH LIQUIGEL OP SCH ×3 (09:51→19:23)
[2017-09-05] MEDS: ASPIRIN 81MG TABLET PO SCH (09:52)
[2017-09-05] MEDS: ASCORBIC ACID 250 MG TABLET PO SCH ×2 (09:52→21:06)
[2017-09-05] MEDS: CLOPIDOGREL 75MG TABLET PO SCH (09:52)
[2017-09-05] MEDS: ZINC SULFATE 220 MG ( 50 ) CAPSULE PO SCH (09:52)
[2017-09-05] MEDS: FOLIC ACID/VITAMIN B COMP W-C TABLET PO SCH (09:52)
[2017-09-05] MEDS: ERGOCALCIFEROL 50000UNITS CAPSULE PO SCH (09:52)
[2017-09-05] MEDS: ENOXAPARIN 40MG/0.4ML SYR SUBCUT SCH (09:53)
[2017-09-05] MEDS: BISACODYL 5MG TABLET PO PRN (15:55)
[2017-09-05 20:00] VITALS: BP 145/52
[2017-09-05] MEDS: POLYETHYLENE GLYCOL 3350 (17GM) 1 DOSE PACK PO SCH (21:00)
[2017-09-05] MEDS: GABAPENTIN 100MG CAPSULE PO SCH (21:06)
[2017-09-05] MEDS: ATORVASTATIN CALCIUM 20MG TABLET PO SCH (21:06)
[2017-09-05] MEDS: LATANOPROST 0.005% OPHTH DROPS 2.5ML RIGHTEYE SCH (21:07)
[2017-09-06] MEDS: [UNRECOGNIZED DRUG - OTHER] OP SCH ×2 (05:00→17:00)
[2017-09-06] MEDS: ACYCLOVIR 400 MG TABLET PO SCH ×3 (06:25→21:20)
[2017-09-06 07:34] VITALS: BP 131/49
[2017-09-06 08:29] LABS: BASOPHILS % 1.5 % (0.0-2.0); EOSINOPHILS % 4.8 % (0.0-5.0); HEMATOCRIT. 32.5 % (36.0-48.0); HEMOGLOBIN. 11.4 g/dL (12.0-16.0); LYMPHOCYTES % 32.8 % (20.0-50.0); MEAN CORPUSCULAR HEMOGLOBIN 32.3 pg (28.0-32.0); MEAN CORPUSCULAR VOLUME 91.8 fL (81.0-99.0); MEAN PLATELET VOLUME 7.9 fl (7.4-10.4); MONOCYTES % 10.8 % (2.0-8.0); NEUTROPHILS % 50.1 % (40.0-76.0); PLATELET 223 x1000/uL (130-400); RED BLOOD CELL COUNT 3.54 mill/uL (4.2-5.4); RED CELL DISTRIBUTION WIDTH 13.4 % (11.6-14.6)
[2017-09-06] MEDS: RESTASIS OP SCH ×2 (08:38→17:57)
[2017-09-06] MEDS: REFRESH LIQUIGEL OP SCH ×3 (08:38→20:31)
[2017-09-06] MEDS: LIDOCAINE HCL 4% CREAM 76GM TUBE TP SCH ×4 (08:39→21:00)
[2017-09-06] MEDS: ZINC SULFATE 220 MG ( 50 ) CAPSULE PO SCH (08:39)
[2017-09-06] MEDS: ASCORBIC ACID 250 MG TABLET PO SCH ×2 (08:39→21:20)
[2017-09-06] MEDS: ASPIRIN 81MG TABLET PO SCH (08:39)
[2017-09-06] MEDS: CLOPIDOGREL 75MG TABLET PO SCH (08:39)
[2017-09-06] MEDS: FOLIC ACID/VITAMIN B COMP W-C TABLET PO SCH (08:39)
[2017-09-06] MEDS: ENOXAPARIN 40MG/0.4ML SYR SUBCUT SCH (08:39)
[2017-09-06] MEDS: DOCUSATE SODIUM 100MG CAPSULE PO SCH ×2 (08:39→17:57)
[2017-09-06 20:00] VITALS: BP 133/59
[2017-09-06] MEDS: POLYETHYLENE GLYCOL 3350 (17GM) 1 DOSE PACK PO SCH (21:00)
[2017-09-06] MEDS: ATORVASTATIN CALCIUM 20MG TABLET PO SCH (21:20)
[2017-09-06] MEDS: GABAPENTIN 100MG CAPSULE PO SCH (21:20)
[2017-09-06] MEDS: LATANOPROST 0.005% OPHTH DROPS 2.5ML RIGHTEYE SCH (21:20)
[2017-09-07] MEDS: [UNRECOGNIZED DRUG - OTHER] OP SCH ×2 (05:00→17:00)
[2017-09-07] MEDS: ACYCLOVIR 400 MG TABLET PO SCH (05:22)
[2017-09-07 08:00] VITALS: BP 131/40
[2017-09-07] MEDS: LIDOCAINE HCL 4% CREAM 76GM TUBE TP SCH ×4 (09:00→20:40)
[2017-09-07] MEDS: ZINC SULFATE 220 MG ( 50 ) CAPSULE PO SCH (10:12)
[2017-09-07] MEDS: DOCUSATE SODIUM 100MG CAPSULE PO SCH ×2 (10:12→17:40)
[2017-09-07] MEDS: FOLIC ACID/VITAMIN B COMP W-C TABLET PO SCH (10:12)
[2017-09-07] MEDS: ASCORBIC ACID 250 MG TABLET PO SCH ×2 (10:12→20:40)
[2017-09-07] MEDS: ENOXAPARIN 40MG/0.4ML SYR SUBCUT SCH (10:13)
[2017-09-07] MEDS: CLOPIDOGREL 75MG TABLET PO SCH (10:13)
[2017-09-07] MEDS: ASPIRIN 81MG TABLET PO SCH (10:13)
[2017-09-07] MEDS: RESTASIS OP SCH ×2 (10:28→17:40)
[2017-09-07] MEDS: REFRESH LIQUIGEL OP SCH ×3 (10:28→20:40)
[2017-09-07 20:00] VITALS: BP 141/47
[2017-09-07] MEDS: GABAPENTIN 100MG CAPSULE PO SCH (20:40)
[2017-09-07] MEDS: LATANOPROST 0.005% OPHTH DROPS 2.5ML RIGHTEYE SCH (20:40)
[2017-09-07] MEDS: ATORVASTATIN CALCIUM 20MG TABLET PO SCH (20:40)
[2017-09-07] MEDS: POLYETHYLENE GLYCOL 3350 (17GM) 1 DOSE PACK PO SCH (20:40)
[2017-09-08] MEDS: [UNRECOGNIZED DRUG - OTHER] OP SCH ×2 (04:59→16:41)
[2017-09-08 07:44] LABS: EOSINOPHILS % 3.9 % (0.0-5.0); HEMOGLOBIN. 11.6 g/dL (12.0-16.0); LYMPHOCYTES % 23.9 % (20.0-50.0); MEAN CORPUSCULAR HEMOGLOBIN 32.6 pg (28.0-32.0); MEAN CORPUSCULAR VOLUME 93.2 fL (81.0-99.0); NEUTROPHILS % 60.2 % (40.0-76.0); RED BLOOD CELL COUNT 3.55 mill/uL (4.2-5.4)
[2017-09-08 08:17] VITALS: BP 112/41
[2017-09-08] MEDS: REFRESH LIQUIGEL OP SCH ×3 (08:44→21:56)
[2017-09-08] MEDS: RESTASIS OP SCH ×2 (08:44→16:42)
[2017-09-08] MEDS: ASPIRIN 81MG TABLET PO SCH (08:45)
[2017-09-08] MEDS: ZINC SULFATE 220 MG ( 50 ) CAPSULE PO SCH (08:45)
[2017-09-08] MEDS: ASCORBIC ACID 250 MG TABLET PO SCH ×2 (08:45→21:55)
[2017-09-08] MEDS: FOLIC ACID/VITAMIN B COMP W-C TABLET PO SCH (08:45)
[2017-09-08] MEDS: CLOPIDOGREL 75MG TABLET PO SCH (08:45)
[2017-09-08] MEDS: DOCUSATE SODIUM 100MG CAPSULE PO SCH ×2 (08:46→16:42)
[2017-09-08] MEDS: ENOXAPARIN 40MG/0.4ML SYR SUBCUT SCH (08:46)
[2017-09-08] MEDS: LIDOCAINE HCL 4% CREAM 76GM TUBE TP SCH ×4 (08:48→21:00)
[2017-09-08 09:47] LABS: CHLORIDE 107 mEq/L (98-107)
[2017-09-08 12:00] LABS: PLATELET ESTIMATE NORMAL
[2017-09-08 20:00] VITALS: BP 111/51
[2017-09-08] MEDS: GABAPENTIN 100MG CAPSULE PO SCH (21:55)
[2017-09-08] MEDS: ATORVASTATIN CALCIUM 20MG TABLET PO SCH (21:55)
[2017-09-08] MEDS: POLYETHYLENE GLYCOL 3350 (17GM) 1 DOSE PACK PO SCH (21:56)
[2017-09-08] MEDS: LATANOPROST 0.005% OPHTH DROPS 2.5ML RIGHTEYE SCH (21:56)
[2017-09-09] MEDS: [UNRECOGNIZED DRUG - OTHER] OP SCH ×2 (04:23→17:00)
[2017-09-09 08:00] VITALS: BP 100/62
[2017-09-09] MEDS: LIDOCAINE HCL 4% CREAM 76GM TUBE TP SCH ×4 (09:00→21:00)
[2017-09-09] MEDS: ASPIRIN 81MG TABLET PO SCH (09:34)
[2017-09-09] MEDS: FOLIC ACID/VITAMIN B COMP W-C TABLET PO SCH (09:34)
[2017-09-09] MEDS: CLOPIDOGREL 75MG TABLET PO SCH (09:34)
[2017-09-09] MEDS: ASCORBIC ACID 250 MG TABLET PO SCH ×2 (09:43→22:02)
[2017-09-09] MEDS: DOCUSATE SODIUM 100MG CAPSULE PO SCH ×2 (09:43→17:03)
[2017-09-09] MEDS: ENOXAPARIN 40MG/0.4ML SYR SUBCUT SCH (09:44)
[2017-09-09] MEDS: ZINC SULFATE 220 MG ( 50 ) CAPSULE PO SCH (09:44)
[2017-09-09] MEDS: REFRESH LIQUIGEL OP SCH ×3 (09:44→20:00)
[2017-09-09] MEDS: RESTASIS OP SCH ×2 (09:47→17:04)
[2017-09-09 20:00] VITALS: BP 119/90
[2017-09-09] MEDS: LATANOPROST 0.005% OPHTH DROPS 2.5ML RIGHTEYE SCH (21:00)
[2017-09-09] MEDS: POLYETHYLENE GLYCOL 3350 (17GM) 1 DOSE PACK PO SCH (21:00)
[2017-09-09] MEDS: ATORVASTATIN CALCIUM 20MG TABLET PO SCH (22:01)
[2017-09-09] MEDS: GABAPENTIN 100MG CAPSULE PO SCH (22:02)
[2017-09-10] MEDS: [UNRECOGNIZED DRUG - OTHER] OP SCH ×2 (05:00→17:00)
[2017-09-10 08:00] VITALS: BP 144/53
[2017-09-10] MEDS: LIDOCAINE HCL 4% CREAM 76GM TUBE TP SCH ×4 (09:00→21:00)
[2017-09-10] MEDS: DOCUSATE SODIUM 100MG CAPSULE PO SCH ×2 (09:00→17:26)
[2017-09-10] MEDS: CLOPIDOGREL 75MG TABLET PO SCH (09:55)
[2017-09-10] MEDS: ZINC SULFATE 220 MG ( 50 ) CAPSULE PO SCH (09:55)
[2017-09-10] MEDS: ASCORBIC ACID 250 MG TABLET PO SCH ×2 (09:55→22:11)
[2017-09-10] MEDS: FOLIC ACID/VITAMIN B COMP W-C TABLET PO SCH (09:55)
[2017-09-10] MEDS: ASPIRIN 81MG TABLET PO SCH (09:56)
[2017-09-10] MEDS: ENOXAPARIN 40MG/0.4ML SYR SUBCUT SCH (09:58)
[2017-09-10] MEDS: RESTASIS OP SCH ×2 (09:59→17:26)
[2017-09-10] MEDS: REFRESH LIQUIGEL OP SCH ×3 (09:59→22:10)
[2017-09-10] MEDS: BISACODYL 5MG TABLET PO PRN (10:47)
[2017-09-10] MEDS: LACTULOSE 20G/30ML UDC PO SCH ×3 (13:31→21:00)
[2017-09-10 20:00] VITALS: BP 115/67
[2017-09-10] MEDS: POLYETHYLENE GLYCOL 3350 (17GM) 1 DOSE PACK PO SCH (21:00)
[2017-09-10] MEDS: GABAPENTIN 100MG CAPSULE PO SCH (22:10)
[2017-09-10] MEDS: ATORVASTATIN CALCIUM 20MG TABLET PO SCH (22:10)
[2017-09-10] MEDS: LATANOPROST 0.005% OPHTH DROPS 2.5ML RIGHTEYE SCH (22:34)
[2017-09-11 07:42] LABS: EOSINOPHILS % 4.8 % (0.0-5.0); HEMATOCRIT. 32.8 % (36.0-48.0); HEMOGLOBIN. 11.4 g/dL (12.0-16.0); LYMPHOCYTES % 32.5 % (20.0-50.0); MEAN CORPUSCULAR VOLUME 92.2 fL (81.0-99.0); MEAN PLATELET VOLUME 8.2 fl (7.4-10.4); MONOCYTES % 13.5 % (2.0-8.0); NEUTROPHILS % 48.2 % (40.0-76.0); PLATELET 200 x1000/uL (130-400); RED BLOOD CELL COUNT 3.56 mill/uL (4.2-5.4); RED CELL DISTRIBUTION WIDTH 13.3 % (11.6-14.6)
[2017-09-11 07:59] LABS: CHLORIDE 109 mEq/L (98-107)
[2017-09-11 08:00] VITALS: BP 127/70
[2017-09-11] MEDS: REFRESH LIQUIGEL OP SCH ×3 (08:57→20:50)
[2017-09-11] MEDS: RESTASIS OP SCH ×2 (08:58→16:20)
[2017-09-11] MEDS: ZINC SULFATE 220 MG ( 50 ) CAPSULE PO SCH (08:59)
[2017-09-11] MEDS: CLOPIDOGREL 75MG TABLET PO SCH (08:59)
[2017-09-11] MEDS: FOLIC ACID/VITAMIN B COMP W-C TABLET PO SCH (08:59)
[2017-09-11] MEDS: ASCORBIC ACID 250 MG TABLET PO SCH ×2 (08:59→21:26)
[2017-09-11] MEDS: LIDOCAINE HCL 4% CREAM 76GM TUBE TP SCH ×4 (09:00→21:00)
[2017-09-11] MEDS: DOCUSATE SODIUM 100MG CAPSULE PO SCH ×2 (09:00→16:21)
[2017-09-11] MEDS: ASPIRIN 81MG TABLET PO SCH (09:00)
[2017-09-11] MEDS: ENOXAPARIN 40MG/0.4ML SYR SUBCUT SCH (09:01)
[2017-09-11] MEDS: [UNRECOGNIZED DRUG - OTHER] OP SCH (17:00)
[2017-09-11 20:00] VITALS: BP 120/64
[2017-09-11] MEDS: POLYETHYLENE GLYCOL 3350 (17GM) 1 DOSE PACK PO SCH (21:00)
[2017-09-11] MEDS: LATANOPROST 0.005% OPHTH DROPS 2.5ML RIGHTEYE SCH ×2 (21:00→21:26)
[2017-09-11] MEDS: GABAPENTIN 100MG CAPSULE PO SCH (21:26)
[2017-09-11] MEDS: ATORVASTATIN CALCIUM 20MG TABLET PO SCH (21:26)
[2017-09-12] MEDS: [UNRECOGNIZED DRUG - OTHER] OP SCH (04:28)
[2017-09-12 08:00] VITALS: BP 85/58
[2017-09-12] MEDS: LIDOCAINE HCL 4% CREAM 76GM TUBE TP SCH (09:00)
[2017-09-12] MEDS: CLOPIDOGREL 75MG TABLET PO SCH (09:12)
[2017-09-12] MEDS: ASPIRIN 81MG TABLET PO SCH (09:12)
[2017-09-12] MEDS: DOCUSATE SODIUM 100MG CAPSULE PO SCH (09:12)
[2017-09-12] MEDS: FOLIC ACID/VITAMIN B COMP W-C TABLET PO SCH (09:12)
[2017-09-12] MEDS: ZINC SULFATE 220 MG ( 50 ) CAPSULE PO SCH (09:12)
[2017-09-12] MEDS: ERGOCALCIFEROL 50000UNITS CAPSULE PO SCH (09:12)
[2017-09-12] MEDS: ASCORBIC ACID 250 MG TABLET PO SCH (09:12)
[2017-09-12] MEDS: ENOXAPARIN 40MG/0.4ML SYR SUBCUT SCH (09:13)
[2017-09-12] MEDS: REFRESH LIQUIGEL OP SCH (09:13)
[2017-09-12] MEDS: RESTASIS OP SCH (09:14)
[2017-09-12] MEDS ORDERED: DIGOXIN 500MCG/2ML AMP IV SCH (11:00)
[2017-09-12] MEDS ORDERED: ASPI-1159 PO (15:53)
[2017-09-12] MEDS ORDERED: CHOL20004 PO (15:53)
[2017-09-12] MEDS ORDERED: ASCO500C6 PO (15:53)
[2017-09-12] MEDS ORDERED: DOCU-138 PO (15:53)
[2017-09-12] MEDS ORDERED: ATOR20TA65 PO (15:53)
[2017-09-12] MEDS ORDERED: XALAO EACHEYE (16:03)
[2017-09-12] MEDS ORDERED: NEPVIT PO (16:03)
[2017-09-12] MEDS ORDERED: GABA100C PO (16:03)
[2017-09-12] MEDS ORDERED: POLY17PO3 PO (16:03)
[2017-09-12] MEDS ORDERED: ZINC220C6 PO (16:03)
[2017-09-12] MEDS ORDERED: MENT10LO8 MM (16:06)
== END 2017-09-12 11:35 | disposition short-term general hospital (02) | DRG 64 ==
LOC: 6WST 09-12 11:55 → UNDODISIN 09-12 12:01
PROVIDERS: ADMIT Physical Medicine & Rehabilitation Spinal Cord Injury Medicine; ATTEND Internal Medicine
DX: I63.9 Cerebral infarction, unspecified (principal); G93.40 Encephalopathy, unspecified; N17.0 Acute kidney failure with tubular necrosis; A41.9 Sepsis, unspecified organism; I50.23 Acute on chronic systolic (congestive) heart failure; N39.0 Urinary tract infection, site not specified; I13.0 Hypertensive heart and chronic kidney disease with heart failure and stage 1 through stage 4 chronic kidney disease, or unspecified chronic kidney disease; I27.20 Pulmonary hypertension, unspecified; D64.9 Anemia, unspecified; E66.9 Obesity, unspecified; H40.9 Unspecified glaucoma; H54.7 Unspecified visual loss; E78.5 Hyperlipidemia, unspecified; R41.0 Disorientation, unspecified; Z68.35 Body mass index [BMI] 35.0-35.9, adult; Z85.41 Personal history of malignant neoplasm of cervix uteri; Z98.84 Bariatric surgery status; Z90.710 Acquired absence of both cervix and uterus; Z88.0 Allergy status to penicillin; Z82.49 Family history of ischemic heart disease and other diseases of the circulatory system; N18.9 Chronic kidney disease, unspecified; R47.01 Aphasia; R47.1 Dysarthria and anarthria; R26.9 Unspecified abnormalities of gait and mobility; R53.81 Other malaise; G56.01 Carpal tunnel syndrome, right upper limb; F06.31 Mood disorder due to known physiological condition with depressive features; F01.50 Vascular dementia, unspecified severity, without behavioral disturbance, psychotic disturbance, mood disturbance, and anxiety; R29.810 Facial weakness; E87.5 Hyperkalemia; B02.9 Zoster without complications; B96.89 Other specified bacterial agents as the cause of diseases classified elsewhere; E55.9 Vitamin D deficiency, unspecified; M11.20 Other chondrocalcinosis, unspecified site; K59.00 Constipation, unspecified; F41.9 Anxiety disorder, unspecified; F32.9 Major depressive disorder, single episode, unspecified
CPT/HCPCS: 36415; 71045; 73100; 73120; 76770; 80048; 80053; 81003; 82306; 82550; 82607; 82728; 82746; 83540; 83550; 83735; 84100; 84134; 84443; 84630; 85025; 86038; 86160; 87086; 92523; 92610; 93005; 93970; 97018; 97110; 97112; 97116; 97163; 97167; 97530; 97535; A6261; C1893; G0515; J1160; J1650; J7620

== ENCOUNTER 2017-09-12 12:04 | Inpatient (IN) | payer MEDICARE, MEDICAID ==
[~2017-09-12] VITALS: Ht 167.6 cm; Wt 95.3 kg
[2017-09-12 12:13] VITALS: BP 80/46
[2017-09-12 12:50] VITALS: BP 80/46
[2017-09-12] MEDS ORDERED: LIDOCAINE HCL/PF 1% 10 MG/ML 5ML VIAL ONE (13:33)
[2017-09-12] MEDS ORDERED: SODIUM BICARBONATE 4% (2.4MEQ) 5ML VIAL IV ONE (13:33)
[2017-09-12] MEDS ORDERED: DIGOXIN 500MCG/2ML AMP IV SCH (14:45)
[2017-09-12] MEDS ORDERED: ASPI-1159 PO (15:53)
[2017-09-12] MEDS ORDERED: CHOL20004 PO (15:53)
[2017-09-12] MEDS ORDERED: ATOR20TA65 PO (15:53)
[2017-09-12] MEDS ORDERED: DOCU-138 PO (15:53)
[2017-09-12] MEDS ORDERED: ASCO500C6 PO (15:53)
[2017-09-12 16:00] VITALS: BP 113/78
[2017-09-12] MEDS ORDERED: ZINC220C6 PO (16:03)
[2017-09-12] MEDS ORDERED: POLY17PO3 PO (16:03)
[2017-09-12] MEDS ORDERED: NEPVIT PO (16:03)
[2017-09-12] MEDS ORDERED: XALAO EACHEYE (16:03)
[2017-09-12] MEDS ORDERED: GABA100C PO (16:03)
[2017-09-12] MEDS ORDERED: MENT10LO8 MM (16:06)
[2017-09-12] MEDS: DOCUSATE SODIUM 100MG CAPSULE PO SCH (17:00)
[2017-09-12] MEDS: AMIODARONE HCL 200 MG TABLET PO SCH (17:33)
[2017-09-12] MEDS: ENOXAPARIN 100MG/ML SYR SUBCUT SCH (17:33)
[2017-09-12 18:09] LABS: BASOPHILS % 1.2 % (0.0-2.0); EOSINOPHILS % 4.8 % (0.0-5.0); HEMOGLOBIN. 11.9 g/dL (12.0-16.0); LYMPHOCYTES % 36.5 % (20.0-50.0); MEAN CORPUSCULAR HEMOGLOBIN 31.5 pg (28.0-32.0); MEAN CORPUSCULAR VOLUME 92.5 fL (81.0-99.0); MEAN PLATELET VOLUME 8.2 fl (7.4-10.4); MONOCYTES % 11.6 % (2.0-8.0); NEUTROPHILS % 45.9 % (40.0-76.0); PLATELET 229 x1000/uL (130-400); RED BLOOD CELL COUNT 3.78 mill/uL (4.2-5.4); RED CELL DISTRIBUTION WIDTH 13.8 % (11.6-14.6)
[2017-09-12 20:13] VITALS: BP 109/64
[2017-09-12] MEDS: LATANOPROST 0.005% OPHTH DROPS 2.5ML EACHEYE SCH (21:00)
[2017-09-12] MEDS: ASCORBIC ACID 250 MG TABLET PO SCH (21:10)
[2017-09-12] MEDS: GABAPENTIN 100MG CAPSULE PO SCH (21:10)
[2017-09-12] MEDS: ATORVASTATIN CALCIUM 40MG TABLET PO SCH (21:10)
[2017-09-13] VITALS (7 sets, daily range): BP systolic 98–135; BP diastolic 39–60
[2017-09-13] MEDS: AMIODARONE HCL 200 MG TABLET PO SCH (00:32)
[2017-09-13 07:08] LABS: BASOPHILS % 1.3 % (0.0-2.0); EOSINOPHILS % 5.3 % (0.0-5.0); HEMATOCRIT. 32.3 % (36.0-48.0); LYMPHOCYTES % 32.7 % (20.0-50.0); MEAN CORPUSCULAR HEMOGLOBIN 31.7 pg (28.0-32.0); MEAN CORPUSCULAR VOLUME 92.6 fL (81.0-99.0); MEAN PLATELET VOLUME 8.3 fl (7.4-10.4); MONOCYTES % 13.3 % (2.0-8.0); NEUTROPHILS % 47.4 % (40.0-76.0); PLATELET 199 x1000/uL (130-400); RED BLOOD CELL COUNT 3.48 mill/uL (4.2-5.4); RED CELL DISTRIBUTION WIDTH 13.5 % (11.6-14.6)
[2017-09-13 07:18] LABS: CHLORIDE 109 mEq/L (98-107)
[2017-09-13 07:28] LABS: CREATINE KINASE 62 IU/L (26-192)
[2017-09-13 07:31] LABS: CREATINE KINASE MB FRACTION 5.4 ng/mL (0.5-3.6)
[2017-09-13] MEDS: DOCUSATE SODIUM 100MG CAPSULE PO SCH ×2 (09:31→18:09)
[2017-09-13] MEDS: ASPIRIN 81MG EC TABLET PO SCH (09:31)
[2017-09-13] MEDS: ZINC SULFATE 220 MG ( 50 ) CAPSULE PO SCH (09:32)
[2017-09-13] MEDS: ASCORBIC ACID 250 MG TABLET PO SCH ×2 (09:37→20:04)
[2017-09-13] MEDS: ENOXAPARIN 100MG/ML SYR SUBCUT SCH (18:10)
[2017-09-13] MEDS: GABAPENTIN 100MG CAPSULE PO SCH (20:04)
[2017-09-13] MEDS: ATORVASTATIN CALCIUM 40MG TABLET PO SCH (20:04)
[2017-09-13] MEDS: LATANOPROST 0.005% OPHTH DROPS 2.5ML EACHEYE SCH (20:05)
[2017-09-14] VITALS: BP 127/45
[2017-09-14 04:00] VITALS: BP 137/49
[2017-09-14 05:51] LABS: BASOPHILS % 1.3 % (0.0-2.0); EOSINOPHILS % 4.8 % (0.0-5.0); HEMATOCRIT. 30.4 % (36.0-48.0); HEMOGLOBIN. 10.4 g/dL (12.0-16.0); LYMPHOCYTES % 44.9 % (20.0-50.0); MEAN CORPUSCULAR HEMOGLOBIN 31.9 pg (28.0-32.0); MEAN CORPUSCULAR VOLUME 93.1 fL (81.0-99.0); MEAN PLATELET VOLUME 8.2 fl (7.4-10.4); MONOCYTES % 10.8 % (2.0-8.0); NEUTROPHILS % 38.2 % (40.0-76.0); PLATELET 200 x1000/uL (130-400); RED BLOOD CELL COUNT 3.27 mill/uL (4.2-5.4); RED CELL DISTRIBUTION WIDTH 13.4 % (11.6-14.6)
[2017-09-14 08:00] VITALS: BP 105/41
[2017-09-14] MEDS: ASPIRIN 81MG EC TABLET PO SCH (08:35)
[2017-09-14] MEDS: ZINC SULFATE 220 MG ( 50 ) CAPSULE PO SCH (08:35)
[2017-09-14] MEDS: DOCUSATE SODIUM 100MG CAPSULE PO SCH (08:35)
[2017-09-14] MEDS: ASCORBIC ACID 250 MG TABLET PO SCH (08:35)
[2017-09-14] MEDS ORDERED: ERGOCALCIFEROL 50000UNITS CAPSULE PO SCH (11:00)
[2017-09-14 12:00] VITALS: BP 129/72
[2017-09-14 12:34] VITALS: BP 129/72
== END 2017-09-14 14:05 | disposition home or self-care (01) | DRG 308 ==
LOC: 6WST 12:04
PROVIDERS: ADMIT Internal Medicine; ATTEND Internal Medicine
PROC: 02HV33Z Insertion of Infusion Device into Superior Vena Cava, Percutaneous Approach (ICD-10-PCS; principal; 2017-09-12)
PROC: B5181ZA Fluoroscopy of Superior Vena Cava using Low Osmolar Contrast, Guidance (ICD-10-PCS; 2017-09-12)
PROC: B548ZZA Ultrasonography of Superior Vena Cava, Guidance (ICD-10-PCS; 2017-09-12)
DX: I48.0 Paroxysmal atrial fibrillation (principal); G93.40 Encephalopathy, unspecified; N17.9 Acute kidney failure, unspecified; I13.0 Hypertensive heart and chronic kidney disease with heart failure and stage 1 through stage 4 chronic kidney disease, or unspecified chronic kidney disease; E87.5 Hyperkalemia; I27.20 Pulmonary hypertension, unspecified; I95.9 Hypotension, unspecified; B02.9 Zoster without complications; I49.5 Sick sinus syndrome; I50.20 Unspecified systolic (congestive) heart failure; D64.9 Anemia, unspecified; H54.8 Legal blindness, as defined in USA; H40.9 Unspecified glaucoma; E78.5 Hyperlipidemia, unspecified; G56.01 Carpal tunnel syndrome, right upper limb; N18.9 Chronic kidney disease, unspecified; E55.9 Vitamin D deficiency, unspecified; E66.9 Obesity, unspecified; Z85.41 Personal history of malignant neoplasm of cervix uteri; Z90.710 Acquired absence of both cervix and uterus; Z86.73 Personal history of transient ischemic attack (TIA), and cerebral infarction without residual deficits; Z87.440 Personal history of urinary (tract) infections; Z98.84 Bariatric surgery status; Z68.33 Body mass index [BMI] 33.0-33.9, adult
CPT/HCPCS: 36415; 36569; 76937; 77001; 80048; 80053; 82550; 82553; 83735; 84484; 85025; 93005; 97162; 97166; C1725; J1160; J1650; J3490

== ENCOUNTER 2017-09-14 16:09 | Emergency (ER) | payer MEDICARE, MEDICAID ==
[~2017-09-14] VITALS: Ht 165.1 cm; Wt 90.0 kg
[~2017-09-14 16:09] MED LIST changes: +ASCO500C6 PO; +ASPI-1159 PO; +ATOR20TA65 PO; +CHOL20004 PO; +DOCU-138 PO; +GABA100C PO; +MENT10LO8 MM; +NEPVIT PO; +POLY17PO3 PO; +XALAO EACHEYE; +ZINC220C6 PO
[2017-09-14 17:30] VITALS: BP 143/72
[2017-09-14 17:38] LABS: BASOPHILS % 1.2 % (0.0-2.0); EOSINOPHILS % 2.8 % (0.0-5.0); HEMATOCRIT. 36.6 % (36.0-48.0); HEMOGLOBIN. 12.6 g/dL (12.0-16.0); LYMPHOCYTES % 31.1 % (20.0-50.0); MEAN CORPUSCULAR HEMOGLOBIN 32.3 pg (28.0-32.0); MEAN CORPUSCULAR VOLUME 93.4 fL (81.0-99.0); MEAN PLATELET VOLUME 7.9 fl (7.4-10.4); MONOCYTES % 8.6 % (2.0-8.0); NEUTROPHILS % 56.3 % (40.0-76.0); PLATELET 215 x1000/uL (130-400); RED BLOOD CELL COUNT 3.91 mill/uL (4.2-5.4); RED CELL DISTRIBUTION WIDTH 13.4 % (11.6-14.6)
[2017-09-14 17:43] LABS: INR 1.1; PARTIAL THROMBOPLASTIN TIME 25.4 sec (23.4-31.0); PROTHROMBIN TIME 11.4 sec (9.4-11.6)
[2017-09-18] MEDS ORDERED: CLOP75TA33 PO (21:43)
[2017-09-18] MEDS ORDERED: ATOR20TA65 PO (21:43)
[2017-09-18] MEDS ORDERED: B CO1TAB7 PO (21:43)
[2017-09-18] MEDS ORDERED: ASCO-339 PO (21:44)
== END 2017-09-14 18:30 | disposition home or self-care (01) ==
LOC: ER 16:18
DX: T82.838A Hemorrhage due to vascular prosthetic devices, implants and grafts, initial encounter (principal); I48.91 Unspecified atrial fibrillation; Z79.01 Long term (current) use of anticoagulants; Z79.82 Long term (current) use of aspirin; Z90.710 Acquired absence of both cervix and uterus; Z88.0 Allergy status to penicillin; Z86.73 Personal history of transient ischemic attack (TIA), and cerebral infarction without residual deficits; Y83.8 Other surgical procedures as the cause of abnormal reaction of the patient, or of later complication, without mention of misadventure at the time of the procedure; Y92.018 Other place in single-family (private) house as the place of occurrence of the external cause
CPT/HCPCS: 36415; 80048; 85025; 85610; 85730; 86850; 86900; 99284